=== PATIENT | female | born 1955 ===

== ENCOUNTER 2016-10-13 08:06 | Day surgery (SDC) | payer MEDICAID ==
[~2016-10-13] VITALS: Ht 165.1 cm; Wt 52.7 kg
[2016-10-13] MEDS ORDERED: NORVASC5 MG PO (08:50)
[2016-10-13] MEDS ORDERED: ZESTRIL40 MG PO (08:51)
[2016-10-13] MEDS ORDERED: VALIUM10 MG PO (08:51)
[2016-10-13] MEDS ORDERED: CYCLOBENZAPRINE10 MG PO (08:51)
[2016-10-13 08:52] LABS: BASOPHILS 0.1 % (0.0-2.0); EOSINOPHILS 2.9 % (0-7); HEMATOCRIT 43.2 % (36.0-48.0); IMMATURE GRANULOCYTES 0.1 % (0-5); LYMPHOCYTES 41.1 % (15-50); MCH 32.8 pg (26.0-34.0); MCHC 34.7 g/dL (31.0-37.0); MCV 94.5 fL (80.0-100.0); MEAN PLATELET VOLUME 9.7 fL (7.4-10.4); MONOCYTES 10.6 % (2-11); NEUTROPHILS 45.2 % (40-80); RBC 4.57 10x6/uL (4.00-5.40); RDW 13.2 % (11.5-14.5); WBC 7.3 10x3/uL (4.8-10.8)
[2016-10-13 08:53] LABS: PLATELET COUNT 273 10x3/uL (130-400)
[2016-10-13 08:58] LABS: CALC OSMOLALITY 281 mosm/kg (275-300); CALCIUM 9.1 mg/dL (8.5-10.1); CARBON DIOXIDE 27.7 mmol/L (21.0-32.0); CHLORIDE - SERUM 106 mmol/L (98-107); CREATININE - SERUM 0.6 mg/dL (0.6-1.3); GLUCOSE 83 mg/dL (74-106); POTASSIUM - SERUM 3.8 mmol/L (3.5-5.1); SODIUM 143 mmol/L (136-145); UREA NITROGEN 8 mg/dL (7-18); eGFR NON AFRICAN AMERICAN > 90 mL/min (90-120)
[2016-10-13 09:00] VITALS: BP 129/90; Ht 165.1 cm; Wt 52.7 kg
--- NOTE | 2016-10-13 11:39 | NUR ---
1135-RECEIVED PT FROM GI LAB AWAKE AND ALERT NO DISTRESS NO N/V WILL CONTINUE TO MONITOR. COFFEE GIVEN AND FULL LIQUID TRAY ORDERED
[2016-10-13] MEDS ORDERED: ZANTAC150 MG PO (11:53)
--- NOTE | 2016-10-13 11:56 | NUR ---
1150-PT TOLERATING COFFEE WELL, FULL LIQUID TRAY GIVEN
--- NOTE | 2016-10-13 11:58 | NUR ---
1155-REPORT GIVEN TO LIZZIE PISANO
--- NOTE | 2016-10-13 12:54 | NUR ---
1240--IV DC'D, PT UP DRESSING. DEEAP PISANO 1250--DISCHARGE INSTRUCTIONS GIVEN, PT VERBALIZES UNDERSTANDING. PT OFF UNIT VIA WC. DEEPA PISANO
--- NOTE | 2016-10-15 18:01 | OP ---
PATIENT NAME: ROXANA BETH MEDICAL RECORD: [id number] :59 LOCATION:D.[facility] ADMISSION DATE: SURGEON: FANG MELENDEZ MD DATE OF OPERATION: 10/13/2016 PROCEDURE: EGD with fecal transplant. ATTENDING PHYSICIAN: Tania Sneed APN ID PHYSICIAN: Dr. Kaylene Neff INDICATIONS: Ms. Beth is a 61-year-old woman with a history of Clostridium difficile-related colitis with recurrence despite treatment with vancomycin including a vancomycin taper. She presents for outpatient fecal transplant. PREMEDICATIONS: Total IV anesthesia (propofol 280 mg). INSTRUMENT: Olympus video colonoscope pediatric. PROCEDURE AND FINDINGS: After receiving informed consent, Ms. Beth's posterior pharynx was anesthetized with Cetacaine spray. She was placed in left lateral decubitus position, sedated as per anesthesia. After achieving adequate sedation, the colonoscope was introduced per orally and advanced into the jejunum without difficulty. The scope was advanced to approximately 120-130 cm. The fecal transplant was deployed through the gastroscope into the jejunum and followed with several water flushes. The colonoscope was withdrawn. Of note, there was few erosions noted in the duodenal bulb. The antral mucosa was mildly erythematous. Small sliding type hiatal hernia is present. There were several small ulcers at the GE junction indicative of GE reflux disease. ASSESSMENT: 1. Recurrent Clostridium difficile colitis, status post fecal transplant. 2. Ulcerative esophagitis, likely secondary to gastroesophageal reflux disease. 3. Small hiatal hernia. 4. Mild gastritis. 5. Erosive duodenitis. RECOMMENDATIONS: 1. Avoid nonsteroidal anti-inflammatory drugs. 2. Continue probiotics. 3. Recommend Pepcid 40 mg p.o. b.i.d. for acid reflux. 4. Follow up EGD in 3 months. TRANSINT:[id number] Voice Confirmation ID: [id number] DOCUMENT ID: [id number] CC: VIOLA Escobedo TERRI MD at 1801 CC: Jose De Jesus NEFF [id number] DICTATION DATE: 10/13/16 1124 [facility]GE: 10/13/16 1203 [facility] 10/13/16 [place] [address]
== END 2016-10-13 12:50 | disposition home or self-care (01) ==
LOC: D.OPS 08:06
PROVIDERS: Internal Medicine Gastroenterology
DX: A04.7 Enterocolitis due to Clostridium difficile (principal); K22.10 Ulcer of esophagus without bleeding; K44.9 Diaphragmatic hernia without obstruction or gangrene; K21.9 Gastro-esophageal reflux disease without esophagitis; K29.70 Gastritis, unspecified, without bleeding; K29.80 Duodenitis without bleeding